=== PATIENT | male | born 1960 | race Caucasian/White ===

== ENCOUNTER → 2019-01-05 | Outpatient (REF) | payer OTHER ==
[~2019-01-05] MED LIST: ASA LO-DOSE81 MG OR; EPIPEN0.3 MG IM; LOPRESSOR50 MG OR; LORTAB 5 OR; METOPROLOL25 M1 OR; OXYCODO-APAP1 TAB OR; PRILOSEC20 MG OR; ZOCOR40 MG OR
[2019-01-05 07:59] LABS: HEMATOCRIT 48.9 % (39.0-50.0); HEMOGLOBIN 15.7 g/dl (14.0-18.0); MEAN CELL VOLUME 91.9 fL CALC (80.0-100.0); MEAN CORPUSCULAR HGB 29.5 pG CALC (26.0-32.0); MEAN CORPUSCULAR HGB CONC 32.1 g/L CALC (32.0-36.0); RED BLOOD COUNT 5.32 mill/uL (4.70-6.10); RED CELL DISTRI WIDTH 12.6 % (11.5-15.5)
[2019-01-05 09:00] LABS: ALBUMIN 4.6 g/dL (3.2-5.0); ALKALINE PHOSPHATASE 58 u/l (38-126); ANION GAP 15 (6-22 (CALC)); BILIRUBIN, TOTAL 0.6 mg/dL (0.0-1.4); BUN 16 mg/dL (9-20); BUN/CREATININE RATIO 14 (12-20 (CALC)); CALCULATED LDLCHOLESTEROL 93 mg/dL (62-129 (CALC)); CARBON DIOXIDE 31 mmol/l (22-30); CHLORIDE 101 mmol/l (95-108); CHOLESTEROL HDL RATIO 4.8 (<4.4 (CALC)); CREATININE 1.2 mg/dL (0.7-1.3); GFR > 60 ML/MIN (>=60 (CALC)); GFR FOR AFR.AMER. > 60 ML/MIN (>=60 (CALC)); HDL CHOLESTEROL 36 mg/dL (>=40); POTASSIUM 5.1 mmol/l (3.5-5.1); SGOT/AST 44 u/l (17-59); SODIUM 142 mmol/l (137-146); TOTAL CHOLESTEROL 173 mg/dl (0-199); TOTAL PROTEIN 7.3 g/dL (6.3-8.2); TOTAL TRIGLYCERIDES 215 mg/dl (30-149); VLDL CHOLESTROL 43 mg/dl (8-62 (CALC))
[2019-01-05 09:24] LABS: TSH, 3RD GENERATION 1.86 uIU/mL (0.47 - 4.68)
== END | disposition home or self-care (01) | DRG 639 ==
LOC: LAB 07:16
PROVIDERS: ATTEND Nurse Practitioner
DX: E11.69 Type 2 diabetes mellitus with other specified complication (principal); E78.2 Mixed hyperlipidemia; Z12.5 Encounter for screening for malignant neoplasm of prostate